=== PATIENT | female | born 1980 | race African-American/Black ===

== ENCOUNTER 2016-06-29 20:54 | Emergency (ER) | payer OTHER ==
[~2016-06-29] VITALS: Ht 165.1 cm; Wt 112.5 kg
[~2016-06-29 20:54] MED LIST: HYDR-971 PO; PENI500T PO
[2016-06-29 20:57] VITALS: BP 133/81
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
[2016-06-29] MEDS ORDERED: HYDROCODONE/APAP 5/325MG TABLET. PO ONE (21:30)
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
[2016-06-29] MEDS ORDERED: HYDR-971 PO (22:12)
== END 2016-06-29 22:19 | disposition home or self-care (01) ==
LOC: ER 20:54
DX: S00.431A Contusion of right ear, initial encounter (principal); J45.909 Unspecified asthma, uncomplicated; F12.10 Cannabis abuse, uncomplicated; F17.200 Nicotine dependence, unspecified, uncomplicated; W50.0XXA Accidental hit or strike by another person, initial encounter; Y93.89 Activity, other specified; Y92.89 Other specified places as the place of occurrence of the external cause; Y99.8 Other external cause status
CPT/HCPCS: 70450; 70486; 99284-25

== ENCOUNTER 2017-11-10 00:39 | Emergency (ER) | payer OTHER ==
[2017-11-10 02:18] LABS: URINE HCG POC HCG NEGATIVE (Negative)
[2017-11-10 02:31] LABS: BILIRUBIN,URINE NEGATIVE (NEG); CLARITY,URINE CLEAR; COLOR,URINE YELLOW; GLUCOSE,URINE NEGATIVE (NEG); NITRITE,URINE NEGATIVE (NEG); PH,URINE 5.5; PROTEIN,URINE NEGATIVE (NEG-TRACE); UROBILINOGEN,URINE 0.2 mg/dL (0.2 mg/dL)
[2017-11-10 02:37] LABS: BACTERIA,URINE FEW /HPF (0-FEW); RBC,URINE OCC /HPF (0-2); SQUAMOUS EPITHELIAL CELL,UR MOD /LPF; WBC,URINE OCC /HPF (0-4)
[2017-11-10 02:38] LABS: AMPHETAMINE/METHAMPHETAMINE NEG (NEG); BARBITURATES NEG (NEG); BENZODIAZEPINES NEG (NEG); CANNABINOIDS POS (NEG); COCAINE POS (NEG); ETHANOL, URINE NEG (NEG); METHADONE NEG (NEG); OPIATES NEG (NEG); PHENCYCLIDINE NEG (NEG)
[2017-11-10] MEDS: DEXAMETHASONE SOD PHOS 20 MG/5 ML VIAL. IV (02:38)
[2017-11-10 02:41] LABS: ADD MAN DIFF? NO
[2017-11-10 02:42] LABS: BASO # 0.1 x10^3/uL (0.0-0.2); BASO % 1 % (0-3); EOS # 0.2 x10^3/uL (0.0-0.7); EOS % 3 % (0-3); HEMATOCRIT 34.4 % (36.0-47.0); HEMOGLOBIN 11.7 g/dL (12.0-15.5); LYMPH % 17 % (24-48); MEAN CORPUSCULAR HEMOGLOBIN 31 pg (25-35); MEAN CORPUSCULAR HGB CONC 34 g/dL (31-37); MEAN CORPUSCULAR VOLUME 91 fL (79-100); MONO # 0.5 x10^3/uL (0.0-1.1); MONO % 9 % (0-9); NEUT % 70 % (31-73); PLATELET COUNT 309 x10^3/uL (140-400); RED BLOOD COUNT 3.79 x10^6/uL (3.50-5.40); RED CELL DISTRIBUTION WIDTH 12.9 % (11.5-14.5); WHITE BLOOD COUNT 5.7 x10^3/uL (4.0-11.0)
[2017-11-10 02:51] LABS: BLOOD UREA NITROGEN 10 mg/dL (7-20); BUN/CREATININE RATIO 14 (6-20); CALCIUM 8.8 mg/dL (8.5-10.1); CREATININE 0.7 mg/dL (0.6-1.0); GLUCOSE 91 mg/dL (70-99)
[2017-11-10 02:52] LABS: ANION GAP 8 (6-14); CARBON DIOXIDE 26 mmol/L (21-32); CHLORIDE 104 mmol/L (98-107); GFR 113.9; POTASSIUM 3.9 mmol/L (3.5-5.1); SODIUM 138 mmol/L (136-145)
[2017-11-10 03:00] LABS: ALBUMIN 3.2 g/dL (3.4-5.0); ALBUMIN/GLOBULIN RATIO 0.9 (1.0-1.7); ALK PHOS 71 U/L (46-116); ALT (SGPT) 24 U/L (14-59); AST (SGOT) 18 U/L (15-37); LIPASE 216 U/L (73-393); MAGNESIUM 1.9 mg/dL (1.8-2.4); TOTAL BILIRUBIN 0.3 mg/dL (0.2-1.0); TOTAL PROTEIN 6.9 g/dL (6.4-8.2)
[2017-11-10 03:02] LABS: TROPONINI < 0.017 ng/mL (0.000-0.055)
[2017-11-10 03:06] LABS: NT-PRO BNP 30 pg/mL (0-124)
== END 2017-11-10 04:17 | disposition home or self-care (01) ==
LOC: ER 00:39
DX: S30.860A Insect bite (nonvenomous) of lower back and pelvis, initial encounter (principal); S60.862A Insect bite (nonvenomous) of left wrist, initial encounter; S60.861A Insect bite (nonvenomous) of right wrist, initial encounter; R07.89 Other chest pain; J45.909 Unspecified asthma, uncomplicated; W57.XXXA Bitten or stung by nonvenomous insect and other nonvenomous arthropods, initial encounter; Y93.89 Activity, other specified; Y99.8 Other external cause status; Y92.89 Other specified places as the place of occurrence of the external cause
CPT/HCPCS: 36415; 71046; 80053; 80307; 81001; 81025; 83690; 83735; 83880; 84484; 85025; 93005; 96374; 99285-25; J1100

== ENCOUNTER 2018-01-29 15:47 | Emergency (ER) | payer OTHER ==
[~2018-01-29] VITALS: Ht 165.1 cm; Wt 122.5 kg
[~2018-01-29 15:47] MED LIST changes: +PRED20TA PO
[2018-01-29 15:57] VITALS: BP 125/75
[2018-01-29] MEDS ORDERED: FAMOTIDINE 20 MG TABLET. PO ONE (16:15)
[2018-01-29] MEDS ORDERED: predniSONE 10 MG TABLET PO ONE (16:15)
[2018-01-29] MEDS ORDERED: METH4TAB2 PO (16:48)
[2018-01-29] MEDS ORDERED: FAMO-63 PO (16:48)
--- NOTE | 2018-01-29 16:48 | PHYS DOC ---
Past Medical History Past Medical History: No Pertinent History Past Surgical History: Additional Past Surgical Histo: C SECTION X 3 Alcohol Use: Heavy Drug Use: Marijuana Adult General Chief Complaint Chief Complaint: SKIN RASH/ABSCESS HPI HPI Patient is a 37 year old female who presents with hives that began this afternoon approximately 30 minutes after she took ibuprofen. The patient states that she has no known food or drug allergies. She states that her throat became itchy and she immediately took Benadryl. She states that she no longer is having any itchiness to her throat. She denies any shortness of air. She does still have itching to the hives. Review of Systems Review of Systems Constitutional: Denies fever or chills [] Respiratory: Denies cough or shortness of breath [] Cardiovascular: No additional information not addressed in HPI [] GI: Denies abdominal pain, nausea, vomiting, bloody stools or diarrhea [] : Denies dysuria or hematuria [] Musculoskeletal: Denies back pain or joint pain [] Integument: See history of present illness Neurologic: Denies headache, focal weakness or sensory changes [] Endocrine: Denies polyuria or polydipsia [] All other systems were reviewed and found to be within normal limits, except as documented in this note. Current Medications Current Medications Current Medications Medications (Trade) Dose Ordered Sig/[facility] Start Time Stop Time Status Last Admin Dose Admin Famotidine (Pepcid) 20 mg 1X ONCE 01/29/18 16:15 01/29/18 16:16 DC 01/29/18 16:40 20 MG Prednisone (Prednisone) 50 mg 1X ONCE 01/29/18 16:15 01/29/18 16:16 DC 01/29/18 16:40 50 MG Allergies Allergies Allergies Coded Allergies Type Severity Reaction Last Updated Verified No Known Drug Allergies 01/01/16 No Physical Exam Physical Exam Constitutional: Well developed, well nourished, no acute distress, non-toxic appearance. [] HENT: Normocephalic, atraumatic, bilateral external ears normal, oropharynx moist, no oral exudates, nose normal. [] Cardiovascular:Heart rate regular rhythm, no murmur [] Lungs & Thorax: Bilateral breath sounds clear to auscultation [] Abdomen: Bowel sounds normal, soft, no tenderness, no masses, no pulsatile masses. [] Skin: The patient has scattered wheals to her neck, chest, bilateral upper extremities and torso Back: No tenderness, no CVA tenderness. [] Extremities: No tenderness, no cyanosis, no clubbing, ROM intact, no edema. [] Neurologic: Alert and oriented X 3, normal motor function, normal sensory function, no focal deficits noted. [] Psychologic: Affect normal, judgement normal, mood normal. [] Current Patient Data Vital Signs Vital Signs Date Time Temp Pulse Resp B/P (MAP) Pulse Ox O2 Delivery O2 Flow Rate FiO2 01/29/18 15:57 98.6 82 16 125/75 (92) 99 Room Air 98.6 EKG EKG [] Radiology/Procedures Radiology/Procedures [] Course & Med Decision Making Course & Med Decision Making Pertinent Labs and Imaging studies reviewed. (See chart for details) []The patient took 50 mg of Benadryl at home. She has been given a dose of prednisone and Pepcid in the emergency department. Dragon Disclaimer Dragon Disclaimer This electronic medical record was generated, in whole or in part, using a voice recognition dictation system. Departure Departure Impression: Primary Impression: Hives Disposition: HOME, SELF-CARE Condition: STABLE Referrals: NO PCP (PCP) Patient Instructions: Hives Additional Instructions: Take medications as directed. Take Benadryl scheduled. Follow-up with your primary care provider if not improving in 3 days or return to the emergency department if worsening. Scripts Famotidine (PEPCID) 20 Mg Tablet 20 MG PO HS, #20 TAB Prov: JEOVANY SMILEY APRN 01/29/18 Methylprednisolone (MEDROL) 4 Mg Tab.ds.pk 1 PKG PO UD, #1 PKG Prov: JEOVANY SMILEY S[employer]IOR ADMINISTRATIVE ASSOCIATE 01/29/18 JEOVANY SMILEY APRN Jan 29, 2018 16:48
== END 2018-01-29 16:53 | disposition home or self-care (01) ==
LOC: ER 15:47
DX: L50.9 Urticaria, unspecified (principal); F12.10 Cannabis abuse, uncomplicated
CPT/HCPCS: 99283; J7512

== ENCOUNTER 2021-08-26 20:58 | Emergency (ER) | payer SELFPAY ==
[~2021-08-26] VITALS: Ht 165.1 cm; Wt 121.8 kg
[~2021-08-26 20:58] MED LIST changes: +FAMO-63 PO; +HYDR-3164 PO; -HYDR-971 PO; +METH4TAB2 PO
[2021-08-26] MEDS ORDERED: ORPHENADRINE CITRATE 60 MG/2 ML VIAL. IM ONE (21:45)
[2021-08-26] MEDS ORDERED: KETOROLAC 30 MG/ML VIAL. IM ONE (21:45)
[2021-08-26] MEDS ORDERED: ORPH100T PO (22:45)
[2021-08-26] MEDS ORDERED: NAPR-514 PO (22:45)
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
[2021-08-26 23:18] VITALS: BP 115/78
== END 2021-08-26 23:22 | disposition home or self-care (01) ==
LOC: ER 20:58
DX: S40.012A Contusion of left shoulder, initial encounter (principal); S40.011A Contusion of right shoulder, initial encounter; S80.02XA Contusion of left knee, initial encounter; S80.01XA Contusion of right knee, initial encounter; S20.219A Contusion of unspecified front wall of thorax, initial encounter; Y08.89XA Assault by other specified means, initial encounter; Y93.89 Activity, other specified; Y92.89 Other specified places as the place of occurrence of the external cause; Y99.8 Other external cause status
CPT/HCPCS: 96372; 99284; J1885; J2360